=== PATIENT | female | born 1985 | race Caucasian/White ===

== ENCOUNTER → 2024-08-09 | Outpatient (CLI) | payer OTHER, SELFPAY ==
--- NOTE | 2024-08-09 15:30 | XR_ITS ---
Examination: Thyroid sonography complete TECHNIQUE: Grayscale sonographic images thyroid lobes are carful analysis Exam date and time: August 09, 2024 1536 hours INDICATIONS: Palpable lump left neck note is beginning several years ago, history left thyroid biopsy May 04, 2023, thyroid complex cystic mass 3.6 cm negative for carcinoma FINDINGS: Right thyroid 5.3 x 1.3 x 2.0 cm Midpole nodule 9 x 8 x 9 mm Lower pole nodule 3 x 2 x 4 mm Left thyroid 4.8 x 2.5 x 3.2 cm Cystic solid mass lower pole left thyroid 3.7 x 2.4 x 3.0 cm IMPRESSION: Right thyroid nodules as above Again noted large cystic solid mass lower pole left thyroid, consider repeat ultrasound-guided fine-needle aspiration as clinically warranted
--- NOTE | 2024-08-09 15:33 | XR_ITS ---
Examination: Fingers, left hand fourth digit 3 views Technique: AP, oblique, lateral views left hand fourth digit 3 views. Exam date and time: July 09, 2025 1547 hours INDICATIONS: Fourth digit pain beginning 3 months ago. FINDINGS: Mild juxta-articular bone demineralization No fracture or dislocation No cortical bone destruction No opaque foreign body IMPRESSION: No fracture or dislocation
== END | disposition home or self-care (01) ==
PROVIDERS: PCP Nurse Practitioner Family; Referring Provider Nurse Practitioner Family; Visit Provider Nurse Practitioner Family
DX: E04.2 Nontoxic multinodular goiter (principal); M79.645 Pain in left finger(s); S60.945A Unspecified superficial injury of left ring finger, initial encounter; X58.XXXA Exposure to other specified factors, initial encounter
CPT/HCPCS: 73140; 76536

== ENCOUNTER → 2025-05-04 | Outpatient (CLI) | payer OTHER, SELFPAY | END | disposition home or self-care (01) | LOC: SLDO 14:26 | PROVIDERS: Referring Provider Registered Nurse; Visit Provider Registered Nurse | DX: S80.862A Insect bite (nonvenomous), left lower leg, initial encounter (principal) | CPT/HCPCS: 87070; 87186; 87205 ==

== ENCOUNTER → 2025-06-09 | Outpatient (CLI) | payer OTHER, SELFPAY ==
--- NOTE | 2025-06-09 12:23 | XR_ITS ---
EXAMINATION: Ultrasound soft tissue neck TECHNIQUE: Grayscale sonographic images of the soft tissue neck Date and time: June 09, 2025, 1323 hours INDICATIONS: Lump in the neck on the left side getting larger months FINDINGS: Large complex cystic solid mass left thyroid 3.9 x 2.9 x 2.9 cm IMPRESSION: Large cystic solid mass in the left thyroid 3.9 x 2.9 x 2.9 cm, consider ultrasound-guided fine-needle aspiration of this nodule
--- NOTE | 2025-06-09 12:23 | XR_ITS ---
EXAMINATION: Thyroid sonography complete TECHNIQUE: Grayscale sonographic images thyroid lobes Date and time: June 09, 2025, 1316 hours INDICATION: Enlarging lump in the left neck, thyroid nodules on ultrasound August 09, 2024 including large cystic solid mass left thyroid 3.7 cm FINDINGS: Right thyroid 4.3 cm Midpole nodule 8 x 8 mm Lower pole nodule 3 x 4 mm Left thyroid 4.9 cm Complex partially solid mid pole left thyroid nodule 4.2 x 3.0 x 2.9 cm IMPRESSION: Recommend ultrasound-guided fine-needle aspiration of the large mid pole left thyroid nodule
[2025-06-09 14:07] LABS: Basophils # (Auto) 0.1 Thou/mm3 (0.0-0.2); Basophils % (Auto) 1 % (0-2.5); Eosinophils # (Auto) 0.2 Thou/mm3 (0.0-0.5); Eosinophils % (Auto) 2 % (0-10); Hematocrit 43.4 % (36.0-46.0); Hemoglobin 14.7 g/dL (12.0-16.0); Immature Granulocytes Auto 0.02 Thou/mm3 (0.00-0.00); Lymphocytes # (Auto) 3.4 Thou/mm3 (1.0-4.8); Lymphocytes % (Auto) 33 % (10-50); Mean Corpuscular HGB Conc 33.9 g/dl (31.0-37.0); Mean Corpuscular Hemoglobin 28.0 pg (25.0-35.0); Mean Corpuscular Volume 83 fL (80-100); Monocytes # (Auto) 0.6 Thou/mm3 (0.0-0.8); Monocytes % (Auto) 6 % (0-12); Neutrophils # (Auto) 5.9 Thou/mm3 (1.8-7.7); Neutrophils % (Auto) 58 % (37-80); Nucleated Red Blood Cell # 0.00 Thou/mm3 (0.00-0.00); Nucleated Red Blood Cell % 0 /100 WBC (0); Platelet Count 357 Thou/mm3 (140-440); RDW Standard Deviation 38.5 fL (36.4-46.3); Red Blood Count 5.25 Miln/mm3 (4.00-5.20); White Blood Count 10.2 Thou/mm3 (3.6-11.0)
[2025-06-09 14:20] LABS: Alanine Aminotransferase 22 U/L (10-49); Albumin, Serum 4.9 gm/dL (3.5-5.0); Albumin/Globulin Ratio 2.1 (1.2-2.2); Alkaline Phosphatase 69 U/L (46-116); Anion Gap 8 (7-16); Aspartate Amino Transferase 24 U/L (0-34); BUN/Creatinine Ratio 16 Ratio (12-20); Bilirubin,Total 0.6 mg/dL (0.3-1.2); Blood Urea Nitrogen 14 mg/dL (9-23); Calcium 9.2 mg/dL (8.3-10.6); Calcium (Corrected) 9.2 mg/dL (8.5-10.1); Carbon Dioxide 26.1 mMol/L (20.0-31.0); Chloride 106 mMol/L (98-107); Creatinine (Component) 0.9 mg/dL (0.6-1.3); Free T4 (Free Thyroxine) 1.20 ng/dL (0.89-1.76); Globulin 2.3 gm/dL (2.3-3.5); Glucose 94 mg/dL (74-106); Osmolality,Calculated 279 (275-295); Potassium 3.8 mMol/L (3.4-5.1); Sodium 140 mMol/L (136-145); Thyroid Stimulating Hormone 1.30 uIU/mL (0.55-4.78); Total Protein 7.2 gm/dL (5.7-8.2); eGFR > 60 See Note
== END | disposition home or self-care (01) ==
PROVIDERS: PCP Nurse Practitioner Family; Referring Provider Nurse Practitioner Family; Visit Provider Nurse Practitioner Family
DX: E04.1 Nontoxic single thyroid nodule (principal); E07.9 Disorder of thyroid, unspecified
CPT/HCPCS: 36415; 76536; 80053; 84439; 84443; 85025